=== PATIENT | female | born 1995 | race Caucasian/White ===

== ENCOUNTER 2020-02-19 08:06 | Emergency (ER) | payer BC ==
[~2020-02-19] VITALS: Ht 172.7 cm; Wt 154.5 kg
[~2020-02-19 08:06] MED LIST: CEPHALEXIN500 M1 PO; LORTAB 5/500 501 TAB PO; NEXPLANON68 MG ID; NO HOME MEDICATIONS; NORCO 325 MG-51 TAB PO
[2020-02-19 08:15] VITALS: TEMP 99
[2020-02-19] MEDS ORDERED: PRENATAL TABLET PO (08:25)
[2020-02-19] MEDS ORDERED: GLUCOPHAGE1000 MG PO (08:25)
[2020-02-19 09:32] LABS: GRAN # 5.3 (1.4-6.5); GRAN % 82.5 % (42.2-75.2); HEMATOCRIT 38.5 % (37.0-47.0); HEMOGLOBIN 12.3 g/dl (12.5-16.0); LYMPH % 14.7 % (20.0-51.0); MEAN CELL VOLUME 82 fl (80.0-100.0); MEAN CORPUSCULAR HEMOGLOBIN 26 pg (27.0-31.0); MEAN CORPUSCULAR HGB CONC 32 g/dl (33.0-37.0); MEAN PLATELET VOLUME 9.3 fl (7.4-10.4); MONO # 0.1 (0.1-0.6); MONO % 2.2 % (1.7-9.3); PLATELET COUNT 267 K/mm3 (130-400); RED BLOOD COUNT 4.67 M/mm3 (4.10-5.30); REDCELL DISTRIBUTION WIDTH-CV 14.6 % (11.5-14.5)
[2020-02-19 11:00] VITALS: BP 138/92; PULSE 99
== END 2020-02-19 11:00 | disposition home or self-care (01) ==
LOC: COL.ER 08:06
PROVIDERS: Family Medicine
DX: O98.511 Other viral diseases complicating pregnancy, first trimester (principal); U07.1 COVID-19; Z3A.01 Less than 8 weeks gestation of pregnancy; Z79.84 Long term (current) use of oral hypoglycemic drugs
CPT/HCPCS: J7120